=== PATIENT | female | born 1980 | race Caucasian/White ===

== ENCOUNTER 2025-04-29 01:04 | Day surgery (SDC) | payer OTHER, SELFPAY ==
[2025-04-28 10:35] VITALS: BMI 31.4
[2025-04-29 07:52] VITALS: BP 169/99; PULSE 60; RESP 20; TEMP 36.7; O2SAT 99
--- NOTE | 2025-04-29 07:54 | WPDANESEPPF ---
Anes - Initial Pre Proc Eval Procedure: Operation Date: 04/29/25 09:00 Proposed Procedures p Esophagogastroduodenoscopy & Colonoscopy - Aaron Greer MD Date/Time: 04/29/25 07:54 Surgeon: Aaron Greer MD Pre Op Diagnosis: Esophageal varices without bleeding Patient Data Age: 44 Gender: F Height: 1.7 m Weight: 84.3 kg Last Vital Signs Temp 36.7 C 04/29/25 07:52 Pulse 60 04/29/25 07:52 Resp 20 04/29/25 07:52 BP 169/99 H 04/29/25 07:52 Pulse Ox 99 04/29/25 07:52 O2 Del Method Room Air 04/29/25 07:52 Allergies Allergy/AdvReac Type Severity Reaction Status Date / Time No Known Allergies Allergy Verified 04/29/25 07:50 Home Medications ?Medication ?Instructions ?Recorded ?Confirmed ?Type duloxetine 30 mg capsule,delayed 30 mg PO DAILY 04/28/25 04/29/25 History release fenofibrate 54 mg tablet 54 mg PO DAILY 04/28/25 04/29/25 History prazosin 2 mg capsule 2 mg PO HS 04/28/25 04/29/25 History propranolol 10 mg tablet 10 mg PO Q12H 04/28/25 04/29/25 History Patient hx anesthesia problems: none Family hx anesthesia problems: none Results Review: All pre-operative results and documents have been reviewed as part of the pre-operative evaluation. [facility] Past Medical History Medical History (Updated 04/29/25 @ 07:55 by Brandon Salcedo MD) Obesity Surgical History Surgical History (Updated 04/29/25 @ 07:55 by Brandon Salcedo MD) History of section Social History Social History Alcohol intake: former Substance use: former Substance use type: amphetamines and opiates Living arrangements: incarcerated Anes - Eval Final PreProcedure Day of Procedure 04/29/25 07:54 Patient weight: obese Heart: regular rate and rhythm Lungs: clear to auscultation Airway: Mallampati scale class II, special considerations poor dentition and other (loose upper teeth) Neurological: alert and oriented Last oral intake: >/= 8 hours ASA classification: III Emergent: no Anesthetic plan: proceed Anesthesia type and monitoring: general GIVS and standard monitoring Results Review: All pre-operative results and documents have been reviewed as part of the pre-operative evaluation. Informed Consent: The patient's anesthetic plan and its attendant risks and benefits were discussed with the patient/family/POA. Questions were solicited and answers provided to the satisfaction of the patient/family/POA.
[2025-04-29 07:56] LABS: BEDSIDEPREGUCG Negative (Negative)
[2025-04-29] MEDS: LACTATED RINGERS 1,000 ML 150 ML IV CONT (08:23)
--- NOTE | 2025-04-29 08:37 | PM.HPGS ---
History of Present Illness History of Present Illness Consent: Risks, benefits, and alternatives have been discussed and questions answered. Patient agrees to proceed with procedure. Chief complaint: Esophageal varices without bleeding Narrative: Rosemary Gan is a 44 year old female from [place] who apparently had esophageal varices however she denies history of liver disease, also had colon polyp 5 years ago. Review of Systems Review of Systems: All systems reviewed & are unremarkable except as noted in HPI and below PMFSH Past Medical History Medical History (Updated 04/29/25 @ 08:41 by Aaron Greer MD) Varices, esophageal Colon polyp Obesity Surgical History Surgical History (Updated 04/29/25 @ 07:55 by Brandon Salcedo MD) History of section Social History Social History Alcohol intake: former Substance use: former Substance use type: amphetamines and opiates Living arrangements: incarcerated Meds Home Medications and Allergies Home Medications ?Medication ?Instructions ?Recorded ?Confirmed ?Type duloxetine 30 mg capsule,delayed 30 mg PO DAILY 04/28/25 04/29/25 History release fenofibrate 54 mg tablet 54 mg PO DAILY 04/28/25 04/29/25 History prazosin 2 mg capsule 2 mg PO HS 04/28/25 04/29/25 History propranolol 10 mg tablet 10 mg PO Q12H 04/28/25 04/29/25 History Allergies Allergy/AdvReac Type Severity Reaction Status Date / Time No Known Allergies Allergy Verified 04/29/25 07:50 Vital Signs Vital Signs - 24 hr 04/29/25 07:52 Temperature 98.1 F Pulse Rate 60 Respiratory Rate 20 Blood Pressure 169/99 H Pulse Oximetry 99 Oxygen Delivery Room Air Exam Const: General: comfortable and no acute distress HENMT: Face/Nose/Sinus: Normal nares present Eyes: General: appearance normal, both eyes and all related structures Neck: Neck: no JVD Resp: Auscultation: clear to auscultation bilaterally Cardio: Rate: regular rate Rhythm: regular rhythm GI: Inspection: non-distended GI Palp: Yes Soft to palpation Skin: General skin exam: normal color Neuro: General: gait normal Speech: normal speech Extrem: General: normal to inspection Psych: Mental Status: mental status grossly normal Assessment and Plan Assessment and plan (1) Colon polyp: Code(s): K63.5 - Polyp of colon Status: Acute Assessment and Plan: colonoscopy (2) Varices, esophageal: Code(s): I85.00 - Esophageal varices without bleeding Status: Acute Assessment and Plan: unsure about this diagnosis but will assess with EGD
[2025-04-29] MEDS: BENZOCAINE (*SP) 60 ML SPRAY CAN (HURRICAINE) 1 SPRAY MUCOUS MEM (08:41)
--- NOTE | 2025-04-29 08:52 | SUR.OPER ---
Egd ended 843, colonoscopy started 847
--- NOTE | 2025-04-29 09:02 | S_PTH ---
PATIENT: Rosemary Gan LOC: [facility]#:[id number] AGE/SX: 44/F ROOM: RE04/29/[address]: Aaron Greer MD : 1980 BED: DIS: 04/29/2025 SPEC #: [id number] RECD: 04/29/25 10:16 STATUS: LAYLA RELeandro #: [id number] CANDIDO: 04/29/25 09:[address]: Aaron Greer DEPT: [facility] Surgical RECD BY: Neto Greene ENTERED: 04/29/25 10:16 SP TYPE: Surgical OTHR DR: PHYSICIAN NOT ON STAFF Tissues: A - Colon Polypectomy Procedures: Hematoxylin and Eosin Stain Gross and Microscopic Level 4
[2025-04-29 09:04] VITALS: BP 108/67; PULSE 62; RESP 17; O2SAT 98
[2025-04-29 09:14] VITALS: BP 121/77; PULSE 60; RESP 19; O2SAT 98
[2025-04-29 09:24] VITALS: BP 140/91; PULSE 60; RESP 19; O2SAT 98
== END 2025-04-29 09:35 | disposition home or self-care (01) ==
PROVIDERS: Anesthesiology; Visit Provider Internal Medicine Gastroenterology
PROC: 0DJ08ZZ Inspection of Upper Intestinal Tract, Via Natural or Artificial Opening Endoscopic (ICD-10-PCS; CPT 45378; principal; 2025-04-29 09:00)
DX: Z12.11 Encounter for screening for malignant neoplasm of colon (principal); K63.5 Polyp of colon; E66.9 Obesity, unspecified; Z68.29 Body mass index [BMI] 29.0-29.9, adult; Z98.890 Other specified postprocedural states; Z87.19 Personal history of other diseases of the digestive system
CPT/HCPCS: 43235; 45385; 88305; J2003; J2704; J7120